=== PATIENT | male | born 1945 | race Two or more races ===

== ENCOUNTER 2017-05-25 23:44 | Inpatient (IN) | payer MEDICARE, MEDICAID ==
[~2017-05-25] VITALS: Ht 157.5 cm; Wt 70.1 kg
[2017-05-26 00:59] LABS: Basophils # (auto) 0 uL; Basophils % (auto) 0.7 % (0.0-2.0); Eosinophils # (auto) 0 uL; Hematocrit 36.1 % (41.0-53.0); Hemoglobin 12.1 g/dL (13.5-17.5); Lymphocytes # (auto) 1.1 uL; Lymphocytes % (auto) 24.2 % (10.0-50.0); Mean Corpuscular Hemoglobin 31.1 pg (28.0-32.0); Mean Corpuscular Hgb Conc. 33.5 g/dL (32.0-36.0); Mean Corpuscular Volume 92.7 fL (80.0-100.0); Monocytes # (auto) 0.4 uL; Monocytes % (auto) 9.8 % (0.0-12.0); Neutrophils # (auto) 2.9 uL; Neutrophils % (auto) 65.3 % (37.0-80.0); Nucleated Red Blood Cells % 0.1 %; Platelet Count (auto) 189 10^3/uL (140-450); Red Cell Distribution Width 14.4 % (11.8-14.3); White Blood Cell 4.5 10^3/uL (4.4-10.8)
[2017-05-26 01:16] LABS: Albumin 3.3 g/dL (3.4-5.0); BUN/Creatinine Ratio 6.2; Magnesium 2.1 mg/dL (1.6-2.6); Potassium 4.7 mmol/L (3.5-5.1)
[2017-05-26 01:21] LABS: Bilirubin, Total 0.6 mg/dL (0.2-1.0); Total Protein 7.2 g/dL (6.4-8.2)
[2017-05-26] MEDS ORDERED: ENOXAPARIN SOD 80 MG/0.8ML SYRINGE SC ONE (08:00)
[2017-05-26] MEDS ORDERED: LACTULOSE 20Gm/30ML SOLN PO PRN (09:30)
[2017-05-26] MEDS ORDERED: LORazepam 0.5 MG TAB PO PRN (09:30)
[2017-05-26] MEDS ORDERED: PROMETHAZINE HCL 25 MG/ML 1ML IV PRN (09:30)
[2017-05-26] MEDS ORDERED: TEMAZEPAM 15 MG CAP PO PRN (09:30)
[2017-05-26] MEDS ORDERED: MORPHINE SULFATE 10 MG/ML INJ 1ML SDV IV PRN ×2 (09:30)
[2017-05-26] MEDS ORDERED: OSELTAMIVIR 75 MG CAP PO ONE (09:30)
[2017-05-26] MEDS ORDERED: HYDROcodone-ACET 5/325MG TAB PO PRN (09:30)
[2017-05-26] MEDS ORDERED: DEXTROSE (50%) 50ML SYRG IV PRN (09:30)
[2017-05-26] MEDS ORDERED: NITROGLYCERIN 0.4 MG SL TAB SL PRN (09:30)
[2017-05-26] MEDS ORDERED: ACETAMINOPHEN 500 MG TAB PO PRN (09:30)
[2017-05-26] MEDS ORDERED: ALBUTEROL SULF 2.5 MG/0.5ML(0.5%) NEB SOLN NEB PRN (09:30)
[2017-05-26] MEDS ORDERED: FAMOTIDINE 20 MG TAB PO SCH (10:00)
[2017-05-26] MEDS ORDERED: OSELTAMIVIR 75 MG CAP PO SCH (10:00)
[2017-05-26] MEDS ORDERED: ENOXAPARIN SOD 30 MG/0.3 ML SYRINGE SC SCH (10:00)
[2017-05-26] MEDS: ASPirin 81 mg TAB PO SCH (10:39)
[2017-05-26] MEDS: AZITHROMYCIN 500MG/ 250ML 250 ML IV SCH (10:39)
[2017-05-26] MEDS: FAMOTIDINE 20 MG TAB PO SCH (10:40)
[2017-05-26] MEDS: CARVEDILOL 3.125 MG TAB PO SCH ×2 (10:40→22:57)
[2017-05-26] MEDS: ENALAPRIL MALEATE 2.5 MG TAB PO SCH (10:41)
[2017-05-26] MEDS: HEPARIN SODIUM (PORCINE) 5000 UNITS/ML 1ML VIAL SC SCH ×2 (10:41→22:56)
[2017-05-26 10:48] VITALS: BP 159/75
[2017-05-26] MEDS: ACCU-CHEK COMFORT CURVE STRIP VI SCH ×3 (11:20→22:00)
[2017-05-26] MEDS: InsuLIN REG 1unit/0.01ml Soln (100units/ml) SC SCH ×3 (11:20→22:00)
[2017-05-26] MEDS: OSELTAMIVIR 30 MG CAP PO SCH (12:09)
[2017-05-26] MEDS: ALBUTEROL SULF 2.5 MG/0.5ML(0.5%) NEB SOLN NEB SCH ×2 (12:53→18:46)
[2017-05-26] MEDS: SODIUM CHLOR 0.9% PF (SALINE LOCK) 10ML VIAL IV SCH ×2 (14:24→22:00)
[2017-05-26 16:18] LABS: Urine Bacteria NONE SEEN /hpf (None Seen); Urine Blood TRACE /uL (Negative); Urine Mucus FEW (None Seen); Urine Specific Gravity 1.016 (1.001-1.035); Urine Sperm PRESENT /hpf (None Seen); Urine WBC 4 /hpf (0 - 3)
[2017-05-26 22:12] VITALS: BP 158/64
[2017-05-26] MEDS: ATORVASTATIN 20 MG TAB PO SCH (22:57)
[2017-05-27] MEDS: ALBUTEROL SULF 2.5 MG/0.5ML(0.5%) NEB SOLN NEB SCH ×4 (00:49→19:35)
[2017-05-27] MEDS ORDERED: METO-158 PO (01:24)
[2017-05-27] MEDS ORDERED: ZOLP5TAB5 PO (01:28)
[2017-05-27] MEDS ORDERED: OMEP20TA PO (01:28)
[2017-05-27] MEDS ORDERED: CLON0.1T PO (01:28)
[2017-05-27] MEDS ORDERED: FURO80TA3 PO (01:28)
[2017-05-27] MEDS ORDERED: ASPI325T4 PO (01:28)
[2017-05-27] MEDS ORDERED: AMLO5TAB2 PO (01:28)
[2017-05-27 05:40] VITALS: BP 147/66
[2017-05-27 05:45] LABS: Basophils # (auto) 0 uL; Basophils % (auto) 0.5 % (0.0-2.0); Eosinophils # (auto) 0 uL; Eosinophils % (auto) 0.2 % (0.0-7.0); Hematocrit 32.6 % (41.0-53.0); Hemoglobin 11.1 g/dL (13.5-17.5); Lymphocytes # (auto) 1.6 uL; Lymphocytes % (auto) 39.7 % (10.0-50.0); Mean Corpuscular Hemoglobin 31.6 pg (28.0-32.0); Mean Corpuscular Volume 92.8 fL (80.0-100.0); Monocytes # (auto) 0.5 uL; Monocytes % (auto) 12.9 % (0.0-12.0); Neutrophils # (auto) 1.9 uL; Neutrophils % (auto) 46.7 % (37.0-80.0); Nucleated Red Blood Cells % 0.1 %; Platelet Count (auto) 157 10^3/uL (140-450); Red Blood Cells 3.52 10^6/uL (4.5-5.90); Red Cell Distribution Width 14.3 % (11.8-14.3)
[2017-05-27] MEDS: SODIUM CHLOR 0.9% PF (SALINE LOCK) 10ML VIAL IV SCH ×3 (05:47→21:53)
[2017-05-27 06:03] LABS: BUN/Creatinine Ratio 6.8; Bilirubin, Total 0.5 mg/dL (0.2-1.0); Calcium 7.2 mg/dL (8.5-10.1); Potassium 4.4 mmol/L (3.5-5.1); Total Protein 6.4 g/dL (6.4-8.2)
[2017-05-27] MEDS: ACCU-CHEK COMFORT CURVE STRIP VI SCH ×4 (06:47→21:53)
[2017-05-27] MEDS: InsuLIN REG 1unit/0.01ml Soln (100units/ml) SC SCH ×4 (06:47→22:01)
[2017-05-27 08:52] VITALS: BP 160/78
[2017-05-27] MEDS: cefTRIAXone 1GM/10ml IVPUSH 10 ML IV SCH (08:54)
[2017-05-27] MEDS: FAMOTIDINE 20 MG TAB PO SCH (09:58)
[2017-05-27] MEDS: ASPirin 81 mg TAB PO SCH (09:58)
[2017-05-27] MEDS: ENALAPRIL MALEATE 2.5 MG TAB PO SCH (09:59)
[2017-05-27] MEDS: CARVEDILOL 3.125 MG TAB PO SCH ×2 (09:59→21:53)
[2017-05-27] MEDS: AZITHROMYCIN 500MG/ 250ML 250 ML IV SCH (10:00)
[2017-05-27] MEDS: HEPARIN SODIUM (PORCINE) 5000 UNITS/ML 1ML VIAL SC SCH ×2 (10:03→21:46)
[2017-05-27] MEDS: OSELTAMIVIR 30 MG CAP PO SCH (11:43)
[2017-05-27 13:00] VITALS: BP 136/71
[2017-05-27 15:50] LABS: Hematocrit 30.5 % (41.0-53.0); Hemoglobin 10.5 g/dL (13.5-17.5); Mean Corpuscular Hemoglobin 31.6 pg (28.0-32.0); Mean Corpuscular Hgb Conc. 34.4 g/dL (32.0-36.0); Mean Corpuscular Volume 91.8 fL (80.0-100.0); Platelet Count (auto) 147 10^3/uL (140-450); Red Blood Cells 3.32 10^6/uL (4.5-5.90); Red Cell Distribution Width 14.8 % (11.8-14.3)
[2017-05-27 15:54] LABS: Band Neutrophils % (manual) 0; Basophils % (manual) 0 (0.0-2.0); Blast Cells 0; Eosinophils % (manual) 0 (0-7); Metamyelocytes % 0; Myelocytes % 0; Promyelocytes % 0; Reactive Lymphocytes 0
[2017-05-27 16:09] LABS: BUN/Creatinine Ratio 6.7; Potassium 3.6 mmol/L (3.5-5.1)
[2017-05-27 17:00] VITALS: BP 180/88
[2017-05-27 19:25] LABS: Lymphocytes % (manual) 69 (10.0-50.0); Monocytes % (manual) 4 (0-12)
[2017-05-27] MEDS: ATORVASTATIN 20 MG TAB PO SCH (21:53)
[2017-05-27 22:58] VITALS: BP 119/69
[2017-05-28] MEDS: ALBUTEROL SULF 2.5 MG/0.5ML(0.5%) NEB SOLN NEB SCH ×4 (00:50→19:44)
[2017-05-28 04:47] VITALS: BP 164/75
[2017-05-28] MEDS ORDERED: SODIUM CHLORIDE 0.9 % NEB SOLN 3ML NEB ONE ×2 (05:24→11:44)
[2017-05-28] MEDS: SODIUM CHLOR 0.9% PF (SALINE LOCK) 10ML VIAL IV SCH ×3 (06:14→21:50)
[2017-05-28] MEDS: InsuLIN REG 1unit/0.01ml Soln (100units/ml) SC SCH ×4 (06:14→21:50)
[2017-05-28] MEDS: ACCU-CHEK COMFORT CURVE STRIP VI SCH ×4 (06:14→21:50)
[2017-05-28 08:21] LABS: Basophils # (auto) 0 uL; Basophils % (auto) 0.5 % (0.0-2.0); Eosinophils # (auto) 0 uL; Eosinophils % (auto) 0.8 % (0.0-7.0); Hematocrit 35.5 % (41.0-53.0); Hemoglobin 11.8 g/dL (13.5-17.5); Lymphocytes # (auto) 1.5 uL; Lymphocytes % (auto) 43.2 % (10.0-50.0); Mean Corpuscular Hemoglobin 30.8 pg (28.0-32.0); Mean Corpuscular Hgb Conc. 33.1 g/dL (32.0-36.0); Mean Corpuscular Volume 92.9 fL (80.0-100.0); Monocytes # (auto) 0.4 uL; Monocytes % (auto) 11.3 % (0.0-12.0); Neutrophils # (auto) 1.5 uL; Neutrophils % (auto) 44.2 % (37.0-80.0); Nucleated Red Blood Cells % 0.1 %; Platelet Count (auto) 183 10^3/uL (140-450); Red Blood Cells 3.82 10^6/uL (4.5-5.90); Red Cell Distribution Width 14.6 % (11.8-14.3); White Blood Cell 3.4 10^3/uL (4.4-10.8)
[2017-05-28 08:42] LABS: Albumin 3.2 g/dL (3.4-5.0); Bilirubin, Total 0.5 mg/dL (0.2-1.0); Calcium 7.3 mg/dL (8.5-10.1); Potassium 4.5 mmol/L (3.5-5.1)
[2017-05-28] MEDS ORDERED: cloNIDine HCL 0.1 MG TAB PO PRN (08:45)
[2017-05-28 09:00] VITALS: BP 161/79
[2017-05-28] MEDS: OSELTAMIVIR 30 MG CAP PO SCH (10:00)
[2017-05-28] MEDS: FAMOTIDINE 20 MG TAB PO SCH (10:43)
[2017-05-28] MEDS: cefTRIAXone 1GM/10ml IVPUSH 10 ML IV SCH (10:44)
[2017-05-28] MEDS: ASPirin 81 mg TAB PO SCH (10:44)
[2017-05-28] MEDS: AZITHROMYCIN 500MG/ 250ML 250 ML IV SCH (10:45)
[2017-05-28] MEDS: CARVEDILOL 3.125 MG TAB PO SCH ×2 (10:47→21:40)
[2017-05-28] MEDS: ENALAPRIL MALEATE 2.5 MG TAB PO SCH (10:48)
[2017-05-28] MEDS: HEPARIN SODIUM (PORCINE) 5000 UNITS/ML 1ML VIAL SC SCH ×2 (11:06→21:41)
[2017-05-28 12:32] VITALS: BP 148/74
[2017-05-28 16:47] VITALS: BP 155/69
[2017-05-28] MEDS: ATORVASTATIN 20 MG TAB PO SCH (21:40)
[2017-05-28 22:00] VITALS: BP 175/75
[2017-05-29] MEDS: ALBUTEROL SULF 2.5 MG/0.5ML(0.5%) NEB SOLN NEB SCH ×3 (00:57→13:36)
[2017-05-29 05:00] VITALS: BP 153/73
[2017-05-29] MEDS ORDERED: SODIUM CHLORIDE 0.9 % NEB SOLN 3ML NEB ONE ×2 (05:26→08:48)
[2017-05-29] MEDS: InsuLIN REG 1unit/0.01ml Soln (100units/ml) SC SCH ×2 (06:03→11:30)
[2017-05-29] MEDS: SODIUM CHLOR 0.9% PF (SALINE LOCK) 10ML VIAL IV SCH ×2 (06:03→14:51)
[2017-05-29] MEDS: ACCU-CHEK COMFORT CURVE STRIP VI SCH ×2 (06:03→11:58)
[2017-05-29 06:08] LABS: Basophils # (auto) 0 uL; Basophils % (auto) 0.5 % (0.0-2.0); Eosinophils # (auto) 0.1 uL; Eosinophils % (auto) 1.8 % (0.0-7.0); Hematocrit 34.5 % (41.0-53.0); Hemoglobin 11.5 g/dL (13.5-17.5); Lymphocytes # (auto) 1.9 uL; Lymphocytes % (auto) 46.5 % (10.0-50.0); Mean Corpuscular Hemoglobin 30.8 pg (28.0-32.0); Mean Corpuscular Hgb Conc. 33.3 g/dL (32.0-36.0); Mean Corpuscular Volume 92.6 fL (80.0-100.0); Monocytes # (auto) 0.4 uL; Monocytes % (auto) 9.9 % (0.0-12.0); Neutrophils # (auto) 1.7 uL; Neutrophils % (auto) 41.3 % (37.0-80.0); Nucleated Red Blood Cells % 0.1 %; Platelet Count (auto) 187 10^3/uL (140-450); Red Blood Cells 3.72 10^6/uL (4.5-5.90); Red Cell Distribution Width 14.5 % (11.8-14.3)
[2017-05-29 06:39] LABS: Albumin 3.2 g/dL (3.4-5.0); BUN/Creatinine Ratio 5.1; Bilirubin, Total 0.5 mg/dL (0.2-1.0); Calcium 7.1 mg/dL (8.5-10.1); Total Protein 6.7 g/dL (6.4-8.2)
[2017-05-29 06:46] LABS: Potassium 5.6 mmol/L (3.5-5.1)
[2017-05-29 07:20] VITALS: BP 144/70
[2017-05-29] MEDS ORDERED: HEPARIN SODIUM (PORCINE) 5000 UNITS/ML 1ML VIAL ONE (08:23)
[2017-05-29] MEDS ORDERED: CALCIUM GLUC 4.65meq/50ml D5AE 50 ML IV ONE (08:45)
[2017-05-29] MEDS ORDERED: SODIUM BICARBONATE 8.4% INJ 50ML SYRINGE IV ONE (08:45)
[2017-05-29] MEDS ORDERED: InsuLIN REG 1unit/0.01ml Soln (100units/ml) IV ONE (08:45)
[2017-05-29] MEDS ORDERED: DEXTROSE (50%) 50ML SYRG IV ONE (08:45)
[2017-05-29] MEDS ORDERED: SODIUM POLYSTYRENE SULF 15GM/60ML SUSP PO ONE (08:45)
[2017-05-29] MEDS ORDERED: ALBUTEROL SULF 2.5 MG/0.5ML(0.5%) NEB SOLN NEB ONE (08:45)
[2017-05-29] MEDS: cefTRIAXone 1GM/10ml IVPUSH 10 ML IV SCH (08:51)
[2017-05-29] MEDS: AZITHROMYCIN 500MG/ 250ML 250 ML IV SCH (08:53)
[2017-05-29] MEDS: ASPirin 81 mg TAB PO SCH (08:54)
[2017-05-29] MEDS: CARVEDILOL 3.125 MG TAB PO SCH (08:54)
[2017-05-29] MEDS: FAMOTIDINE 20 MG TAB PO SCH (08:55)
[2017-05-29] MEDS: OSELTAMIVIR 30 MG CAP PO SCH (08:55)
[2017-05-29] MEDS: ENALAPRIL MALEATE 2.5 MG TAB PO SCH (08:56)
[2017-05-29] MEDS: HEPARIN SODIUM (PORCINE) 5000 UNITS/ML 1ML VIAL SC SCH (09:06)
[2017-05-29 12:08] VITALS: BP 143/49
[2017-05-29 15:01] VITALS: BP 143/49
== END 2017-05-29 15:57 | disposition home or self-care (01) | DRG 193 ==
LOC: ER 23:44 → TELE 23:45 → TELE-CENTR 05-26 20:30
PROVIDERS: ADMIT Internal Medicine; ATTEND Family Medicine
PROC: 5A1D70Z Performance of Urinary Filtration, Intermittent, Less than 6 Hours Per Day (ICD-10-PCS; principal; 2017-05-27)
DX: J10.00 Influenza due to other identified influenza virus with unspecified type of pneumonia (principal); N18.6 End stage renal disease; E11.22 Type 2 diabetes mellitus with diabetic chronic kidney disease; E87.5 Hyperkalemia; I12.0 Hypertensive chronic kidney disease with stage 5 chronic kidney disease or end stage renal disease; E87.1 Hypo-osmolality and hyponatremia; J44.0 Chronic obstructive pulmonary disease with (acute) lower respiratory infection; J44.1 Chronic obstructive pulmonary disease with (acute) exacerbation; R74.8 Abnormal levels of other serum enzymes; K59.00 Constipation, unspecified; I65.23 Occlusion and stenosis of bilateral carotid arteries; E78.00 Pure hypercholesterolemia, unspecified; E78.5 Hyperlipidemia, unspecified; I25.10 Atherosclerotic heart disease of native coronary artery without angina pectoris; D64.9 Anemia, unspecified; Z99.2 Dependence on renal dialysis; Z83.3 Family history of diabetes mellitus; Z95.5 Presence of coronary angioplasty implant and graft
CPT/HCPCS: 36415; 70450; 71045; 80048; 80053; 80061; 81001; 82550; 82962; 83036; 83605; 83735; 83880; 84443; 84484; 85007; 85025; 85027; 85652; 86141; 87040; 87400; 90935; 93005; 93306; 94640; 96372; G9035; J0610; J1815

== ENCOUNTER 2018-04-26 16:36 | Emergency (ER) | payer MEDICARE, MEDICAID ==
[~2018-04-26] VITALS: Ht 160 cm; Wt 72.6 kg
[~2018-04-26 16:36] MED LIST: AMLO5TAB13 PO; ASPI325T4 PO; CLON0.1T PO; FURO80TA3 PO; METO-158 PO; OMEP20TA PO; ZOLP5TAB5 PO
[2018-04-26] MEDS ORDERED: cloNIDine HCL 0.1 MG TAB ONE (17:12)
[2018-04-26 18:12] LABS: Basophils # (auto) 0.1 uL; Basophils % (auto) 0.8 % (0.0-2.0); Eosinophils # (auto) 0.1 uL; Eosinophils % (auto) 1.5 % (0.0-7.0); Hematocrit 38.9 % (41.0-53.0); Hemoglobin 12.8 g/dL (13.5-17.5); Lymphocytes # (auto) 1.2 uL; Lymphocytes % (auto) 18.1 % (10.0-50.0); Mean Corpuscular Hgb Conc. 32.8 g/dL (32.0-36.0); Mean Corpuscular Volume 91.4 fL (80.0-100.0); Monocytes # (auto) 0.5 uL; Monocytes % (auto) 7.2 % (0.0-12.0); Neutrophils # (auto) 4.8 uL; Neutrophils % (auto) 72.4 % (37.0-80.0); Platelet Count (auto) 256 10^3/uL (140-450); Red Blood Cells 4.26 10^6/uL (4.5-5.90); Red Cell Distribution Width 15.5 % (11.8-14.3); White Blood Cell 6.6 10^3/uL (4.4-10.8)
[2018-04-26 18:36] LABS: Albumin 3.6 g/dL (3.4-5.0); Calcium 7.8 mg/dL (8.5-10.1); Magnesium 2.2 mg/dL (1.6-2.6); Potassium 4.1 mmol/L (3.5-5.1)
[2018-04-26 18:42] LABS: BUN/Creatinine Ratio 4.8; Total Protein 7.3 g/dL (6.4-8.2)
[2018-04-26] MEDS ORDERED: CALCIUM CHL 100MG/ML 500 MG in D5W 5% 100 ML IV ONE (23:15)
[2018-04-26] MEDS ORDERED: CALCIUM CHLOR(10%) 100MG/ML 10ML SYRINGE IV ONE (23:26)
[2018-04-27 02:45] VITALS: BP 167/87
== END 2018-04-27 03:39 | disposition home or self-care (01) ==
LOC: ER 16:36
DX: E11.22 Type 2 diabetes mellitus with diabetic chronic kidney disease (principal); I12.0 Hypertensive chronic kidney disease with stage 5 chronic kidney disease or end stage renal disease; N18.6 End stage renal disease; E83.51 Hypocalcemia; R51 Headache; Z98.61 Coronary angioplasty status; Z79.82 Long term (current) use of aspirin; Z79.899 Other long term (current) drug therapy
CPT/HCPCS: 36415; 70450; 80053; 83735; 84484; 85025; 93005; 94761; 96365; J7060

== ENCOUNTER 2018-08-09 10:03 | Inpatient (IN) | payer MEDICARE, MEDICAID | END 2018-08-12 17:37 | disposition home or self-care (01) | LOC: ER 10:03 → TELE-WESTW 08-10 17:10 → TELE 17:12 → TELE-WESTW 21:53 | DX: I13.2 Hypertensive heart and chronic kidney disease with heart failure and with stage 5 chronic kidney disease, or end stage renal disease (principal); J18.9 Pneumonia, unspecified organism; N18.6 End stage renal disease; J96.20 Acute and chronic respiratory failure, unspecified whether with hypoxia or hypercapnia; R44.3 Hallucinations, unspecified; I50.32 Chronic diastolic (congestive) heart failure; E87.1 Hypo-osmolality and hyponatremia; Z99.2 Dependence on renal dialysis; E13.9 Other specified diabetes mellitus without complications; E83.51 Hypocalcemia; E13.22 Other specified diabetes mellitus with diabetic chronic kidney disease; E78.5 Hyperlipidemia, unspecified; I50.9 Heart failure, unspecified; D63.1 Anemia in chronic kidney disease ==